=== PATIENT | female | born 1995 | race Caucasian/White ===

== ENCOUNTER 2017-11-23 15:58 | Emergency (ER) | payer MEDICAID ==
[~2017-11-23] VITALS: Ht 157.5 cm; Wt 65.0 kg
[2017-11-23] MEDS ORDERED: LIDOCAINE HCL 1% 20ML VIAL (Pyxis) INJ MC ONE (18:15)
[2017-11-23] MEDS ORDERED: TETANUS, DIPHTHERIA, PERTUSSIS VAC/PF 0.5ML (>7YR OLD) IM ONE (18:15)
[2017-11-23] MEDS ORDERED: BACITRACIN ZINC OINT UDPKT TOP ONE (18:15)
[2017-11-23 19:22] VITALS: BP 113/72
== END 2017-11-23 19:23 | disposition home or self-care (01) ==
LOC: ER 16:45
DX: L60.0 Ingrowing nail (principal); Z23 Encounter for immunization
CPT/HCPCS: 11730; 90471; 90715; 99283; J3490; Z7610